=== PATIENT | female | born 1940 | race Caucasian/White ===

== ENCOUNTER 2018-01-26 10:55 | Inpatient (IN) | payer MEDICARE, OTHER ==
[~2018-01-26] VITALS: Ht 167.6 cm; Wt 48.5 kg
[2018-01-26] MEDS ORDERED: SODIUM CHLORIDE FLUSH 10ML SYR IVF ONE (12:00)
[2018-01-26 12:31] LABS: BASOPHILS # (AUTO) 0.02 x10^3/uL (0-0.1); BASOPHILS % (AUTO) 0 % (0-1); EOSINOPHILS # (AUTO) 0.01 x10^3/uL (0-0.4); EOSINOPHILS % (AUTO) 0 % (1-7); LYMPHOCYTES # (AUTO) 0.58 x10^3/uL (1-3.4); LYMPHOCYTES % (AUTO) 9 % (22-44); MD SCAN; MEAN CORPUSCULAR VOLUME 102.8 fL (80-100); MONOCYTES # (AUTO) 0.68 x10^3/uL (0.2-0.8); MONOCYTES % (AUTO) 10 % (2-9); NEUTROPHILS # (AUTO) 5.25 x10^3/uL (1.8-6.8); NEUTROPHILS % (AUTO) 80 % (42-75); PLATELET COUNT 88 x10^3/uL (130-400); RED BLOOD COUNT 4.83 x10^6/uL (3.82-5.3); RED CELL DISTRIBUTION WIDTH 13.7 % (9.6-15.2)
[2018-01-26 12:42] LABS: ALANINE AMINOTRANSFERASE 15 U/L (12-78); ALBUMIN 3.6 g/dL (3.4-5.0); ANION GAP 8 mmol/L (5-15); CALCIUM 8.3 mg/dL (8.5-10.1); CHLORIDE 108 mmol/L (98-107); CREATININE 0.93 mg/dL (0.55-1.02)
[2018-01-26 12:46] LABS: ALKALINE PHOSPHATASE 54 U/L (45-117); BILIRUBIN,TOTAL 1.7 mg/dL (0.2-1.0); TOTAL PROTEIN 6.7 g/dL (6.4-8.2); TROPONIN I < 0.015 ng/mL (0.000-0.045)
[2018-01-26] MEDS: PLEASE ENTER ALLERGIES MC SCH ×2 (13:01→19:33)
[2018-01-26] MEDS ORDERED: ASPI-496 PO (13:07)
[2018-01-26] MEDS ORDERED: LEVO25TA4 PO (13:08)
[2018-01-26] MEDS ORDERED: LOSA100T6 PO (13:08)
[2018-01-26] MEDS ORDERED: METO-282 PO (13:09)
[2018-01-26] MEDS ORDERED: OMNIPAQUE 350 MG/ML, 100ML BOTTLE ONE (13:32)
[2018-01-26] MEDS ORDERED: ONDANSETRON ODT 4 MG PO PRN (16:00)
[2018-01-26] MEDS ORDERED: TRAZODONE 50MG TABLET PO PRN (16:00)
[2018-01-26] MEDS ORDERED: GUAIFENESIN/DM 200-20MG, 10ML UDC PO PRN (16:00)
[2018-01-26] MEDS ORDERED: ACETAMINOPHEN 325 MG TABLET PO PRN (16:00)
[2018-01-26] MEDS ORDERED: DOCUSATE 100 MG CAPSULE PO PRN (16:00)
[2018-01-26] MEDS ORDERED: hydrALAzine 20 MG/ML, 1ML IVPush PRN (16:00)
[2018-01-26] MEDS ORDERED: ONDANSETRON 2MG/ML, 2ML IVPush PRN (16:00)
[2018-01-26] MEDS ORDERED: BISACODYL 10 MG SUPP PR PRN (16:00)
[2018-01-26] MEDS ORDERED: ENALAPRILAT 1.25 MG/ML, 2ML IVPush PRN (16:00)
[2018-01-26] MEDS ORDERED: POLYETHYLENE GLYCOL 17 GM PACKET PO PRN (16:00)
[2018-01-26] MEDS ORDERED: ALBUTEROL/IPRATROPIUM 2.5MG/0.5MG, 3 ML ONE (16:05)
[2018-01-26 16:14] LABS: FREE T4 (FREE THYROXINE) 1.78 ng/dL (0.76-1.46); THYROID STIMULATING HORMONE 0.183 mIU/L (0.358-3.740)
[2018-01-26] MEDS: ALBUTEROL/IPRATROPIUM 2.5MG/0.5MG, 3 ML NPPB SCH ×2 (16:27→19:16)
[2018-01-26 16:39] LABS: HCT (SEDRATE) 47.5 % (34.6-47.8)
[2018-01-26] MEDS: SODIUM CHLORIDE 0.9% 1,000 ML IV SCH (17:11)
[2018-01-26] MEDS: methylPREDNISolone SOD SUCC 125 MG/2 ML IVPush SCH (17:11)
[2018-01-26] MEDS: ENOXAPARIN 40 MG/0.4 ML SQ SCH (17:12)
[2018-01-26] MEDS: NICOTINE 7 MG/24 HR PATCH.TD24 TD SCH (17:12)
[2018-01-26] MEDS: LEVOFLOXACIN/PMX 750MG/150ML 150 ML IV SCH (17:52)
[2018-01-26 19:43] VITALS: BP 95/57
[2018-01-26] MEDS: FAMOTIDINE 20 MG TABLET PO SCH (21:09)
[2018-01-27] MEDS: methylPREDNISolone SOD SUCC 125 MG/2 ML IVPush SCH ×3 (00:07→16:12)
[2018-01-27] MEDS: PLEASE ENTER ALLERGIES MC SCH (00:10)
[2018-01-27 03:22] VITALS: BP 91/54
[2018-01-27 04:56] LABS: MEAN CORPUSCULAR HEMOGLOBIN 34.5 pg (27.0-34.8); MEAN CORPUSCULAR HGB CONC 33.1 g/dL (32.4-35.8); RED BLOOD COUNT 4.18 x10^6/uL (3.82-5.3); RED CELL DISTRIBUTION WIDTH 13.5 % (9.6-15.2)
[2018-01-27 05:00] LABS: MD YES; MEAN PLATELET VOLUME 9.8 fL (7.4-10.4); PLATELET COUNT 77 x10^3/uL (130-400)
[2018-01-27 05:01] LABS: ANION GAP 7 mmol/L (5-15); CALCIUM 8.1 mg/dL (8.5-10.1); CHLORIDE 108 mmol/L (98-107)
[2018-01-27 05:02] LABS: CREATININE 0.99 mg/dL (0.55-1.02)
[2018-01-27 05:40] LABS: BAND#(MANUAL) 0.11 x10^3/uL; BANDS%(MANUAL) 3 % (0-7); BASOS#(MANUAL) 0.04 x10^3/uL (0-0.1); BASOS% (MANUAL) 1 % (0-1); LYMPH#(MANUAL) 0.37 x10^3/uL (1-3.4); LYMPHS% (MANUAL) 10 % (22-44); MONOS#(MANUAL) 0.15 x10^3/uL (0.3-2.7); MONOS% (MANUAL) 4 % (2-9); SEG#(MANUAL) 3.03 x10^3/uL (1.8-6.8); SEGS% (MANUAL) 82 % (42-75)
[2018-01-27 05:41] LABS: <PLATELET ESTIMATE> DECREASED; <PLT MORPHOLOGY> NORMAL PLT MORPH
[2018-01-27 06:12] LABS: MICROSCOPIC AUTO
[2018-01-27 06:16] LABS: CULTURE INDICATED? YES
[2018-01-27] MEDS: SODIUM CHLORIDE 0.9% 1,000 ML IV SCH (06:29)
[2018-01-27 06:41] VITALS: BP 95/53
[2018-01-27] MEDS: ALBUTEROL/IPRATROPIUM 2.5MG/0.5MG, 3 ML NPPB SCH ×4 (07:18→19:05)
[2018-01-27] MEDS: LOSARTAN 50MG TABLET PO SCH (07:59)
[2018-01-27] MEDS: ASPIRIN 81 MG TABLET EC PO SCH (07:59)
[2018-01-27] MEDS: FAMOTIDINE 20 MG TABLET PO SCH ×2 (07:59→19:50)
[2018-01-27] MEDS ORDERED: LEVOTHYROXINE 25 MCG TABLET PO SCH ×2 (09:00)
[2018-01-27] MEDS ORDERED: LEVOTHYROXINE 125 MCG TABLET PO SCH (09:00)
[2018-01-27 10:57] VITALS: BP 111/67
[2018-01-27 13:02] VITALS: BP 109/63
[2018-01-27] MEDS ORDERED: FUROSEMIDE 20 MG/2 ML IV ONE (15:00)
[2018-01-27] MEDS: LEVOFLOXACIN/PMX 750MG/150ML 150 ML IV SCH (16:11)
[2018-01-27] MEDS: NICOTINE 7 MG/24 HR PATCH.TD24 TD SCH (16:12)
[2018-01-27] MEDS: ENOXAPARIN 40 MG/0.4 ML SQ SCH (16:12)
[2018-01-27 19:09] VITALS: BP 99/53
[2018-01-27] MEDS: SODIUM CHLORIDE FLUSH 10ML SYR IVF SCH (19:50)
[2018-01-27] MEDS: LORazepam 0.5MG TABLET PO PRN (20:01)
[2018-01-28 02:25] VITALS: BP 111/62
[2018-01-28] MEDS ORDERED: LEVOTHYROXINE 112 MCG TABLET HOMEMEDPO SCH (06:00)
[2018-01-28] MEDS ORDERED: LEVOTHYROXINE 112 MCG TABLET PO SCH (06:00)
[2018-01-28] MEDS: ALBUTEROL/IPRATROPIUM 2.5MG/0.5MG, 3 ML NPPB SCH ×5 (07:04→14:44)
[2018-01-28] MEDS: LOSARTAN 50MG TABLET PO SCH (07:59)
[2018-01-28] MEDS: LORazepam 0.5MG TABLET PO PRN (07:59)
[2018-01-28] MEDS: FAMOTIDINE 20 MG TABLET PO SCH (07:59)
[2018-01-28] MEDS: methylPREDNISolone SOD SUCC 125 MG/2 ML IVPush SCH ×2 (07:59)
[2018-01-28] MEDS: ASPIRIN 81 MG TABLET EC PO SCH (07:59)
[2018-01-28 08:00] VITALS: BP 131/77
[2018-01-28] MEDS: SODIUM CHLORIDE FLUSH 10ML SYR IVF SCH (09:25)
[2018-01-28] MEDS ORDERED: LEVO112T2 PO (12:54)
[2018-01-28] MEDS ORDERED: METH4TAB2 PO (12:54)
[2018-01-28] MEDS ORDERED: METR500T8 PO (13:04)
[2018-01-28 13:55] VITALS: BP 116/72
== END 2018-01-28 15:40 | disposition hospice, home (50) | DRG 291 ==
LOC: ED 13:46 → EDIP 14:39 → 3NW 15:49
PROVIDERS: ADMIT Hospitalist; ATTEND Hospitalist
DX: I11.0 Hypertensive heart disease with heart failure (principal); J96.21 Acute and chronic respiratory failure with hypoxia; C18.9 Malignant neoplasm of colon, unspecified; J44.1 Chronic obstructive pulmonary disease with (acute) exacerbation; I50.23 Acute on chronic systolic (congestive) heart failure; E03.9 Hypothyroidism, unspecified; I25.10 Atherosclerotic heart disease of native coronary artery without angina pectoris; N76.0 Acute vaginitis; Z51.5 Encounter for palliative care; Z66 Do not resuscitate; Z85.3 Personal history of malignant neoplasm of breast; Z87.891 Personal history of nicotine dependence; Z90.710 Acquired absence of both cervix and uterus; Z79.899 Other long term (current) drug therapy
CPT/HCPCS: 36415; 71275; 80048; 80053; 81001; 83605; 83880; 84439; 84443; 84484; 85025; 85651; 87040; 87070; 87086; 87205; 93005; 94640; 99285; J1650; J1956; J7620; Q9967; J1940; J2930; J7030